=== PATIENT | female | born 1955 | race Caucasian/White ===

== ENCOUNTER 2022-05-26 20:04 | Emergency (ER) | payer OTHER, SELFPAY ==
[2022-05-26 20:50] VITALS: BP 152/82; PULSE 91; RESP 18; TEMP 37.2; O2SAT 97; BMI 25.0
--- NOTE | 2022-05-26 21:30 | ED.GENADULT ---
HPI - General Adult General Chief complaint: Sore Throat Stated complaint: Tested positive for COVID Time Seen by Provider: 05/26/22 21:24 History of Present Illness HPI narrative: This 66-year-old female comes in reporting a cough that started yesterday and feeling worse today. She turned positive on a COVID test earlier today. She comes in requesting Paxil of id. She arrives with normal vital signs. Related Data Previous Rx's Medication Instructions Recorded nirmatrelvir 150 mg-ritonavir 100 See Rx Instructions PO .COMPLEX 05/26/22 mg tablets in a dose pack (EUA) #20 ea (Paxlovid) Allergies Allergy/AdvReac Type Severity Reaction Status Date / Time codeine Allergy Mild Anxiety Verified 05/26/22 20:54 Review of Systems Status of ROS: Reports: 10 or more systems reviewed and unremarkable except as noted in History and below Narrative: Constitutional: No fevers, no weight gain or loss. Generalized malaise. Eyes: No discharge. No vision changes. HENT: No congestion, no sore throat, no ear pain. Cardiovascular: No chest pain, no palpitations. Respiratory: No shortness of breath, no wheezes. Occasional cough. Gastrointestinal: No abdominal pain, no vomiting, no diarrhea. Genitourinary: No dysuria, no hematuria. Musculoskeletal: Normal range of motion. Skin: No rashes, no pruritis. Neurological: No dizziness, weakness, sensory change, speech change. Endo/Heme/Allergies: No bruising or bleeding. No polydipsia. Pysch: no suicidality, no anxiety, no insomnia. All other systems reviewed and are negative. Exam Narrative: Exam Narrative: Constitutional: Well-developed, well-nourished, no acute distress. HEENT: Normocephalic, atraumatic. Neck: Normal range of motion. Nontender. Supple. Heart: Regular. No murmurs. Normal rate. Intact distal pulses. Lungs: Clear to auscultation. No chest discomfort. No wheezes, rhonchi, or rales. Abdomen: Normal bowel sounds. Nontender. No rebound tenderness. Genitalia: Deferred. Back: No midline tenderness. Normal range of motion. Extremities: Normal range of motion. No injury. Skin: Intact. No rash. Warm. No erythema or pallor. Neurologic: No altered sensation. No weakness. Alert and oriented. Psychiatric: No suicidality. No anxiety or depression. No insomnia. Nursing notes and vitals signs are reviewed. Const: Vital Signs, click to edit/add: Vital Signs - 24 hr 05/26/22 20:50 Temperature 98.9 F Pulse Rate [Right Pulse Oximeter] 91 Respiratory Rate 18 Blood Pressure [Ri ght Upper Arm] 152/82 H Pulse Oximetry 97 Oxygen Delivery Me thod Room Air Course Vital Signs Vital signs: Initial Vital Signs Temperature 98.9 F 05/26/22 20:50 Temperature Source Temporal Artery Scan 05/26/22 20:50 Pulse Rate 91 05/26/22 20:50 Respiratory Rate 18 05/26/22 20:50 Blood Pressure 152/82 H 05/26/22 20:50 Blood Pressure Mean 105 05/26/22 20:50 Blood Pressure Position Sitting 05/26/22 20:50 Pulse Oximetry 97 05/26/22 20:50 Oxygen Delivery Method 05/26/22 20:50 Vital Signs Temperature 98.9 F 05/26/22 20:50 Pulse Rate 91 05/26/22 20:50 Respiratory Rate 18 05/26/22 20:50 Blood Pressure 152/82 H 05/26/22 20:50 Pulse Oximetry 97 05/26/22 20:50 Oxygen Delivery Method 05/26/22 20:50 Temperature 98.9 F 05/26/22 20:50 Pulse Rate 91 05/26/22 20:50 Respiratory Rate 18 05/26/22 20:50 Blood Pressure 152/82 H 05/26/22 20:50 Pulse Oximetry 97 05/26/22 20:50 Oxygen Delivery Method 05/26/22 20:50 Medical Decision Making [facility] Narrative Medical decision making narrative: This patient is positive for COVID and symptoms started yesterday. Her creatinine level is is normal range and she is a candidate for Paxlovid. She is not on any other medications. She received an oral dose of dexamethasone 10 mg. A prescription for Paxlovid is provided. Lab Data Labs: Lab Results 05/26/22 Range/Units 21:05 Creatinine 0.6 (0.5-1.5) mg/dL Estimated Creat Clear 51.14 Estimated GFR 100 ml/min Discharge Plan Discharge Clinical Impression: COVID-19 Patient Disposition: Home, Self-Care Condition: Stable Additional Instructions: Take medication as prescribed. Use npye-hhn-[id number] medicines as needed and directed. Follow up with MD or return if worsening. Prescriptions: New Paxlovid (EUA) 150-100 mg tablets,dose pack See Rx Instructions .ROUTE .COMPLEX Qty: 20 0RF Rx Instructions: orally per package directions Stand Alone Forms: [employer] Info Instructions
[2022-05-26] MEDS: dexAMETHasone 10 MG/ML inj PO (21:39)
--- OUTSIDE RECORDS SUMMARY | 2022-05-26 21:42 | XMS_ITS | Clinical Summary ---
:1955 Author Organization [facility] [place] [address] Care Team Providers Name Role Phone Adela Ewing MD Primary Care Provider [phone] Allergies Active Allergy Reactions Severity Noted Date Comments Codeine 08/25/2007 Medications Medication Sig Dispensed Refills Start Date End Date Status ferrous sulfate 325 mg Take 1 tablet by 0 11/25/2016 Active delayed release tablet mouth once daily. ascorbic acid, vitamin Take 1 tablet by 0 11/27/2017 Active C, (VITAMIN C) 500 mg mouth once daily. tablet cholecalciferol Take 1 capsule by 0 05/26/2019 Active (VITAMIN D) 1,000 unit mouth once daily. capsule triamcinolone Apply topically 45 g 1 05/15/2021 Active (ARISTOCORT; KENALOG) to affected 0.1 % creamIndications: area(s) 3 times Chronic eczema daily. zinc 50 mg tablet Take 1 Tablet (50 0 11/08/2021 Active mg) by mouth once daily. Sxeoe-2-TPV-EPA-Fish Take 1 Capsule 0 11/08/2021 Active Oil 1,000 mg (120 (1,000 mg) by mg-180 mg) cap mouth. Active Problems Problem Noted Date History of carpal tunnel repair 11/01/2012 Screen for colon cancer 11/15/2010 Encounters Date Type Specialty Care Team Description 03/18/2022 Ancillary Procedure 03/18/2022 Travel from Last 3 Months Immunizations Name Administration Dates Next Due COVID-19 vaccine (Alexis Bittar 30mcg/0.3mL) PF, , 09/04/2020 MDV Td (Age >=7 Years) 09/01/2003 Tdap 05/15/2021, 10/04/2010 Zoster (Shingrix-RZV, recombinant) 02/09/2018, 11/27/2017 Family History Medical History Relation Name Comments Other Father bone ca Heart Disease Maternal Grandfather Heart Disease Maternal Uncle Diabetes Mother Heart Disease Mother Hyperlipidemia Mother Other Mother dialysis Heart Disease Other Cancer-breast No Family History Cancer-ovarian No Family History Relation Name Status Comments Father Maternal Grandfather Maternal Uncle Mother Other Social History Tobacco Use Types Packs/Day Years Used Date Never Smoker Smokeless Tobacco: Never Used Tobacco Cessation: Counseling Given: Yes Alcohol Use Standard Drinks/Week Comments Yes 6 (1 standard drink = 0.6 oz pure alcoho l) moderate Alcohol Habits Answer Date Recorded How often do you have a drink containing 4 or more times a w sokaogon 11/30/2018 alcohol? How many drinks containing alcohol do you have 1 or 2 11/30/2018 on a typical day when you are drinking? How often do you have six or more drinks on one Never 11/30/2018 occasion? 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 Respiratory Rate 18 01/30/2016 9:32 AM CDT Oxygen Saturation 97% 11/08/2021 8:57 AM CDT Inhaled Oxygen Concentration - - Weight 68.4 kg (150 lb 12.8 oz) 11/08/2021 8:57 AM CDT Height 162.6 cm (5' 4) 11/08/2021 8:57 AM CDT Body Mass Index 25.88 11/08/2021 8:57 AM CDT Plan of Treatment Health Maintenance Due Date Last Done Comments COVID-19 vaccine series (3 - 11/20/2020 09/25/2020, 021 Booster for Pfizer series) Pap test for age 21-65 11/30/2021 11/30/2018, 11/12/2015, 11/01/2012, Additional history exists Influenza for age 50-64 04/10/2022 Depression screening for age 12+ 05/15/2022 05/15/2021, , 11/30/2018, Additional history exists BMI (ht and wt on same day) for 11/08/2022 11/08/2021, 1001/2021, age 18+ 04/03/2021, Additional history exists Mammogram for age 45-75 03/18/2023 03/18/2022, 02/21/2021, 02/21/2020, Additional history exists Lipids for age 45-75 11/08/2026 11/08/2021, 05/15/2021, 03/29/2020, Additional history exists Tetanus booster 05/15/2031 05/15/2021, 10/04/2010, 09/01/2003 Colonoscopy through age 75 07/12/2031 07/12/2021, , 07/12/2021, Additional history exists Zoster (shingles) series for age Completed 02/09/2018, 50+ Hepatitis C screening for age Completed 11/30/2018 18-79 Tdap Completed 05/15/2021, 10/04/2010 Procedures Procedure Name Priority Date/Time Associated Diagnosis Comme nts XR MAMMO BILAT Routine 03/18/2022 8:28 AM Visit for screening Results for this SCREENING CDT mammogram procedure are i n the results section. from Last 3 Months Results XR MAMMO BILAT SCREENING (03/18/2022 8:28 AM CDT) Anatomical Region Laterality Modality BREASTS, Breast Left, Breast Right Bilateral Mammo graphy Specimen (Source) Anatomical Location Collection Method / Collectio n Time Received Time / Laterality Volume Impressions 03/18/2022 3:24 PM CDT ??There is no radiographic evidence for malignancy. ??Recommend annual mammograms. MAMMOGRAM ASSESSMENT: ??ACR 1 Negative PATIENTS: You will also receive a letter with your examination results in an easy to read format. ??If you have qu estions about your results, please contact your referring provider. Narrative 03/18/2022 3:24 PM CDT For Patients: As a result of the Century Cures Act, medical imaging exams and procedure reports are released immediately into your electronic medical record. You may view this report before your referring provider. If you have questions, please contact [facility] care provider. XR MAMMO BILAT SCREENING [[id number]] CLINICAL HISTORY: ??This is an asymptoma tic 66 y.o. patient. INDICATION FOR EXAM: Mammogram Screening . TECHNIQUE: CC & MLO views were obtained. ??This study was evaluated with the assistance of Computer-Aided Detecti on. COMPARISON FILM: Yes 02/21/21 [facility] 02/20/20 [facility] FINDINGS: ??The breasts have scattered a reas of fibroglandular density. There are no dominant masses, suspicious micro calcifications or areas of architectural distortion. Adela Ewing MD MAMMO from Last 3 Months Insurance Payer Benefit Plan / Subscriber ID Effective Dates Phone Addre ss Type Group MEDICA MEDICA CHOICE [id number] 2019-Present [address] [address] [place] [address] Guarantor Name Account Type Relation to Date of Phone Billing Patient Address [place] Personal/Family Self 1955 [address] [place] (Home) [place] [phone] (Work) Care Teams Pre Assembly Wirer Relationship Specialty Start Date End Date Adela Ewing MD PCP - General Family Practice 09/06/21 [address] [place] [id number]
[2022-05-26 21:59] LABS: Creatinine* 0.6 mg/dL (0.5-1.5); Est. Creatinine Clearance* 51.14; Estimated Glomerular Filt Rate 100 ml/min
[2022-05-26 22:29] VITALS: BP 145/78; PULSE 89; RESP 18; TEMP 37.2; O2SAT 97
[2022-05-26 22:35] VITALS: BP 145/78; PULSE 89; RESP 18; TEMP 37.2
[2022-05-27 02:13] LABS: Chloride* 98 mmol/L (96-114); Potassium* 3.9 mmol/L (3.6-5.1); Sodium* 135 mmol/L (135-149)
[2022-05-27 02:15] LABS: Creatinine* 0.6 mg/dL (0.5-1.5); Est. Creatinine Clearance* 51.14; Estimated Glomerular Filt Rate 100 ml/min
[2022-05-27 02:16] LABS: Blood Urea Nitrogen* 16 mg/dL (7-30); Calcium* 9.4 mg/dL (8.4-10.6); Carbon Dioxide* 26 mmol/L (20-32); Glucose* 132 mg/dL (60-115)
== END 2022-05-26 22:35 | disposition home or self-care (01) ==
LOC: ED 21:41
PROVIDERS: Emergency Provider Emergency Medicine Emergency Medical Services; PCP Family Medicine
DX: U07.1 COVID-19 (principal); Z88.5 Allergy status to narcotic agent
CPT/HCPCS: 36415; 80048; 82565; 96372; 99283; 99284; J1100

== ENCOUNTER 2023-01-21 06:24 | Day surgery (SDC) | payer OTHER, SELFPAY ==
[2023-01-21 06:40] VITALS: BP 106/74; PULSE 73; RESP 16; TEMP 37; O2SAT 97; BMI 25.7
[2023-01-21] MEDS: BUPIVACAINE 0.5% 30 ML INJECTION (07:05)
[2023-01-21] MEDS: ETHYL CHLORIDE 1 APPLICATION 1 APPLIC TOPICAL (07:05)
[2023-01-21 07:29] VITALS: BP 113/70; PULSE 76; RESP 16; O2SAT 98
[2023-01-21 07:35] VITALS: BP 124/75; PULSE 73; RESP 16; O2SAT 98
[2023-01-21 07:40] VITALS: BP 126/83; PULSE 78; RESP 14; O2SAT 99
--- NOTE | 2023-01-21 07:40 | P.ORPRC_ITS ---
Procedure Note Date of procedure: 01/21/23 Procedure: PREOPERATIVE DIAGNOSIS: 1. Left carpal tunnel syndrome POSTOPERATIVE DIAGNOSIS: 1. Left carpal tunnel syndrome PROCEDURE: 1. Left open carpal tunnel release SURGEON: Mustapha Hitchcock MD. SMALL BOAT ENGINEER: Jeb Agee PA-C ANESTHESIA: Local anesthetic (50:50 mixture of 1% lidocaine with epi and 0.5% marcaine plain) - 10ml total IMPLANTS: None EBL: 2 mL TOURNIQUET: None COMPLICATIONS: None evident INDICATIONS: The patient is a pleasant 67-year-old female who has experienced left hand numbess/tingling affecting the radial 3.5 digits for multiple months. It has progressively gotten worse. Nonoperative management has been tried and failed, and therefore surgery was recommended. DESCRIPTION OF PROCEDURE: Following a thorough discussion of risks, benefits, and alternatives consent was obtained and the operative extremity was marked. The patient was brought to the operating room and placed supine on the operating table. Local anesthesia induction was undertaken in preop holding. No antibiotics were administered as this was planned to be a local case only. Proper time-out was performed identifying proper patient, site, and procedure. The operative extremity was prepped and draped in the appropriate sterile fashion using ChloraPrep. An incision was made in line with the radial border of the ring finger beginning 1 cm distal to the distal wrist crease and progressing for another 2.5cm distal. Caution was taken to stay proximal to Duque's cardinal line. Sharp incision through the skin, subcutaneous tissue, and palmar fascia was performed. The thenar musculature was bluntly elevated off the transverse carpal ligament. The ligament was directly visualized, and divided sharply with a 15 blade. This was released from its most proximal to the most distal extent. Metzenbaum scissor was also utilized to release the fascia extension proximally. We confirmed complete release of the transverse carpal ligament. Closure was performed with 4-O nylon in interrupted fashion. Soft dressings were applied, and the patient was transferred to the recovery room in stable condition. PLAN: 1. Encourage elevation of the operative extremity. 2. Range of motion of the fingers and hand/wrist as tolerated. 3. Ibuprofen/acetaminophen and/or oxycodone as needed for pain control. 4. Follow up with PA visit or nurse visit in 12-16 days for wound check and suture removal.
[2023-01-21 07:45] VITALS: BP 119/77; PULSE 74; RESP 16; O2SAT 98
[2023-01-21 07:52] VITALS: BP 108/72; PULSE 74; RESP 16; TEMP 37; O2SAT 97
== END 2023-01-21 08:13 | disposition home or self-care (01) ==
PROVIDERS: PCP Family Medicine; Visit Provider Orthopaedic Surgery Sports Medicine
PROC: (CPT 64721; principal; 2023-01-21 07:30)
DX: G56.02 Carpal tunnel syndrome, left upper limb (principal)
CPT/HCPCS: 64721; J3490

== ENCOUNTER 2024-07-17 20:50 | Emergency (ER) | payer MEDICARE, BC, SELFPAY ==
[2024-07-17 20:54] VITALS: BP 133/90; PULSE 80; RESP 20; TEMP 36.4; O2SAT 97; BMI 25.0
--- NOTE | 2024-07-17 21:16 | ED_ITS ---
HPI - Skin/Abscess/Foreign Bdy General Chief complaint: Skin/Abscess/Foreign Body Stated complaint: Sowing Needle stuck in left hand Index finger Time Seen by Provider: 07/17/24 20:53 History of Present Illness HPI narrative: This 68-year-old female comes in with a sewing machine needle stuck into the distal portion of her left index finger. She was using a sewing machine and accidentally got her finger in the pathway of the needle. The needle broke off but a portion of it is imbedded in her finger with some of the sewing thread attached. She states that her tetanus status is up-to-date. Related Data Home Medications ?Medication ?Instructions ?Recorded ?Confirmed ascorbate calcium (vitamin C) 500 1 g PO Q6H 12/09/22 07/17/24 mg tablet ascorbic acid (vitamin C) 500 mg mg PO 12/09/22 03/19/23 capsule omega 0-esf-cnf-fish oil 300 1 cap PO QDAY 12/09/22 07/17/24 mg-1,000 mg capsule (Fish Oil) rosuvastatin 5 mg tablet (Crestor) 5 mg PO QDAY 12/09/22 07/17/24 Previous Rx's ?Medication ?Instructions ?Recorded nirmatrelvir 150 mg-ritonavir 100 See Rx Instructions PO .COMPLEX 05/26/ mg tablets in a dose pack #20 ea (Paxlovid) Allergies Allergy/AdvReac Type Severity Reaction Status Date / Time codeine Allergy Mild Anxiety Verified 07/17/24 20:57 Review of Systems Status of ROS: Reports: 10 or more systems reviewed and unremarkable except as noted in History and below Narrative: Constitutional: No fevers, no weight gain or loss. Eyes: No discharge. No vision changes. HENT: No congestion, no sore throat, no ear pain. Cardiovascular: No chest pain, no palpitations. Respiratory: No shortness of breath, no wheezes, no cough. Gastrointestinal: No abdominal pain, no vomiting, no diarrhea. Genitourinary: No dysuria, no hematuria. Musculoskeletal: Normal range of motion. Skin: No rashes, no pruritis. Neurological: No dizziness, weakness, sensory change, speech change. Endo/Heme/Allergies: No bruising or bleeding. No polydipsia. Pysch: no suicidality, no anxiety, no insomnia. All other systems reviewed and are negative. [facility] Medical History (Updated 07/17/24 @ 21:19 by Simone Whitaker MD) Sinusitis ?J32.9 - Chronic sinusitis, unspecified (ICD-10) Anemia, unspecified ?D64.9 - Anemia, unspecified (ICD-10) Surgical History (Updated 03/19/23 @ 14:16 by Jeb Agee PA-C) History of carpal tunnel surgery of left wrist (01/21/23) ?Z98.890 - Other specified postprocedural states (ICD-10) H/O breast biopsy ?Z98.890 - Other specified postprocedural states (ICD-10) H/O section ?Z98.891 - History of uterine scar from previous surgery (ICD-10) History of arthroscopy of knee (07/26/09) ?Z98.890 - Other specified postprocedural states (ICD-10) History of carpal tunnel release (~1996) ?Z98.890 - Other specified postprocedural states (ICD-10) Social History Smoking Status: Never smoker Do you use any of these nicotine containing products: None Second hand tobacco smoke exposure: No How often do you have a drink containing alcohol: never How often do you have six or more drinks on one occasion: Never AUDIT-C Alcohol total score: 0 Non-prescribed substance use: denies use Exam Narrative: Exam Narrative: Constitutional: Well-developed, well-nourished, no acute distress. HEENT: Normocephalic, atraumatic. Neck: Normal range of motion. Nontender. Supple. Heart: Intact distal pulses. Lungs: No chest discomfort. No wheezes, rhonchi, or rales. Abdomen: Nontender. Back: Normal range of motion. Extremities: Normal range of motion. Puncture wound of the needle from a sewing machine in the distal portion of her left index finger. Skin: Intact. No rash. Warm. No erythema or pallor. Neurologic: No altered sensation. No weakness. Alert and oriented. Psychiatric: No suicidality. No anxiety or depression. No insomnia. Nursing notes and vitals signs are reviewed. Const: Vital Signs, click to edit/add: Vital Signs - 24 hr 07/17/24 20:54 Temperature 97.6 F Pulse Rate [Pulse Oximeter] 80 Respiratory Rate 20 Blood Pressure [Ri ght Upper Arm] 133/90 H Pulse Oximetry 97 Oxygen Delivery Me thod Room Air Course Vital Signs Vital signs: Initial Vital Signs Temperature 97.6 F 07/17/24 20:54 Temperature Source Temporal Artery Scan 07/17/24 20:54 Pulse Rate 80 07/17/24 20:54 Pulse Rhythm Regular 07/17/24 20:54 Pulse Strength 3+ Normal 07/17/24 20:54 Respiratory Rate 20 07/17/24 20:54 Blood Pressure 133/90 H 07/17/24 20:54 Blood Pressure Mean 104 07/17/24 20:54 Blood Pressure Position Sitting 07/17/24 20:54 Pulse Oximetry 97 07/17/24 20:54 Oxygen Delivery Method Room Air 07/17/24 20:54 Vital Signs Temperature 97.6 F 07/17/24 20:54 Pulse Rate 80 07/17/24 20:54 Respiratory Rate 20 07/17/24 20:54 Blood Pressure 133/90 H 07/17/24 20:54 Pulse Oximetry 97 07/17/24 20:54 Oxygen Delivery Method Room Air 07/17/24 20:54 Temperature 97.6 F 07/17/24 20:54 Pulse Rate 80 07/17/24 20:54 Respiratory Rate 20 07/17/24 20:54 Blood Pressure 133/90 H 07/17/24 20:54 Pulse Oximetry 97 07/17/24 20:54 Oxygen Delivery Method Room Air 07/17/24 20:54 MDM - Skin/Abscess/Foreign Bdy MDM Narrative Medical decision making narrative: This patient has a foreign object in her finger. I did inject a small amount of 1% lidocaine for anesthesia and then used a mosquito clamp to grab onto the needle and pull it through along with the thread. There is no residual wound that needs repair. The patient applied some direct pressure to stop bleeding and then a Band-Aid was applied. Discharge Plan Discharge Clinical Impression: Foreign body (FB) in soft tissue Patient Disposition: Home, Self-Care Condition: Improved Additional Instructions: Use goum-feb-wikcsus medicines as needed and directed. Follow up with MD or return if worsening. Prescriptions: No Action rosuvastatin [Crestor] 5 mg tablet 5 mg PO QDAY ascorbic acid (vitamin C) 500 mg capsule PO omega 7-gdj-jmi-fish oil [Fish Oil] 300-1,000 mg capsule 1 cap PO QDAY ascorbate calcium (vitamin C) 500 mg tablet 1 g PO Q6H Paxlovid 150-100 mg tablets,dose pack See Rx Instructions .ROUTE .COMPLEX Qty: 20 0RF Rx Instructions: orally per package directions Follow Up/Referrals: Adela Ewing MD [Primary Care Provider] - Stand Alone Forms: [employer] Info Instructions
--- OUTSIDE RECORDS SUMMARY | 2024-07-17 21:28 | XMS_ITS | Clinical Summary ---
Author Organization [facility] Address [place], [place] [address] Care Team Providers Care Night Manager Name Role Phone KaylinAdela valentino MD Primary Care Provider Allergies Active Allergy Reactions Criticality Noted Date Comments Codeine 08/25/2007 Medications Xoelg-3-LIP-EPA-Fis h Oil 1,000 mg (120 mg-180 mg) cap Take 1 Capsule (1,000 mg) by mouth. 0 2 Active calcium carbonate-vitamin D3, 500 mg-400 units, (Calcium 500 + D) tablet Take 1 Tablet by mouth three times daily with meals. Active rosuvastatin (CRESTOR) 20 mg tabletIndications:H yperlipidemia, unspecified hyperlipidemia type Take 1 Tablet (20 mg) by mouth at bedtime. 90 Tablet 3 4 Active Active Problems Problem Noted Date Diagnosed Date Pap smear for cervical cancer screening 10/10/19 23 Overview (10/09/2022): 09/19/2022: NIL/HPV neg. Plan: routine screening History of carpal tunnel repair 11/01/2012 Screen for colon cancer 11/15/2010 Encounters Date Type Department Care Team Description 07/04/2024 2:40 PM LAUNDRY TECHNICIAN Office Visit [facility] [address] [address] Jessica Laboy MD Derm Problem 07/04/2024 Travel 05/09/2024 8:50 AM CDT Office Visit [facility] [address] [place], [place] [address] Lola Madsen PA Derm Problem (Spot by left eye that just started growing this summer-seems to keep growing so wants checked) 05/09/2024 Travel from Last 3 Months Immunizations Name Administration Dates Next Due COVID-19 vaccine ([employer] 30mcg/0.3mL) P F, MDV 09/25/2020,09/04/2020 Td (Age >=7 Years) 09/01/2003 Tdap 05/15/2021,10/04/2010 Zoster (Shingrix-RZV, recombinant) 02/09/2018, Family History Medical History Relation Name Comments Other Father bone ca Heart Disease Maternal Grandfather Heart Disease Maternal Uncle Diabetes Mother Heart Disease Mother Hyperlipidemia Mother Other Mother dialysis Heart Disease Other Cancer-breast No Family History Cancer-ovarian No Family History Relation Name Status Comments Father Maternal Grandfather Maternal Uncle Mother Other Social History Tobacco Use Types Packs/Day Years Used Date Smoking Tobacco: Never Smokeless Tobacco: Never Tobacco Cessation:Counseling Given: Yes Alcohol Use Standard Drinks/Week Comments Yes 6 (1 standard drink = 0.6 oz pur e alcohol) moderate PHQ-2 Answer Date Recorded PHQ-2 TOTAL SCORE 0 09/28/2023 Social Connections Answer Date Recorded Do you often feel lonely or isolated from those around you? 0 09/28/2023 Financial Resource Strain Answer Date R ecorded Difficulty of Paying Living Expenses 3 09/28/2023 Difficulty of Paying Living Expenses Not on file 09/28/2023 Food Insecurity Answer Date Recorded Do you worry your food will run out before you are able to buy more? 1 09/28/2023 Transportation Needs Answer Date Record ed Does lack of transportation keep you from medica l appointments? 1 09/28/2023 Does lack of transportation keep you from work, meetings or getting things that you need? 1 09/28/2023 Housing Stability Answer Date Recorded What is your housing situation today? 1 09/28/2023 Comments No Sex and Gender Information Value Date Recorded Sex Assigned at Not on file Legal Sex Female 5:17 AM LAUNDRY TECHNICIAN Gender Identity Not on file Sexual Orientation Not on file Obstetrics History Para Term AB IAB SAB Ectopic Multiple Livin g Live Births 2 2 2 Date Outcome GA Total Labor Labor/2nd/3rd Weight Sex Type Anes PTL [place] A1 A5 Name Clin Term Term Last Filed Vital Signs Vital Sign Reading Time Taken Comments Blood Pressure 104/67 05/09/2024 8:54 AM CDT Pulse 79 05/09/2024 8:54 AM CDT Temperature 36.8 C (98.2 F) 12/01/2023 3:01 PM CDT Respiratory Rate 18 01/30/2016 9:32 AM CDT Oxygen Saturation 97% 05/09/2024 8:54 AM CDT Inhaled Oxygen Concentration - - Weight 73 kg (161 lb) 05/09/2024 8:54 AM CDT Height 163.8 cm (5' 4.5) 09/28/2023 8:09 AM LAUNDRY TECHNICIAN Body Mass Index 27.21 09/28/2023 8:09 AM LAUNDRY TECHNICIAN Plan of Treatment Health Maintenance Due Date Last Done Comments Pneumococcal series for age 65+ (1 of 1 - PCV) 2022 COVID-19 vaccine series ( season) 2024 09/25/2020, 09/04/2020 Influenza for age 65+ 04/10/2024 BMI (ht and wt on same day) for age 18+ 09/28/2024 09/28/2023, 11/03/2022, 09/19/2022, Additional history exists Depression screening for age 12+ 09/28/2024 09/28/2023, 09/19/2022, 05/15/2021, Additional history exists Medicare Wellness for age 65+ 09/28/2024 09/28/2023 Mammogram for age 45-75 04/05/2025 04/05/20 24, 03/31/2023, 03/18/2022, Additional history exists Lipids for age 45-75 09/28/2028 09/28/2023, 09/19/2022, 11/08/2021, Additional history exists Tetanus booster 05/15/2031 05/15/2021, /12/2010, 09/01/2003 Colonoscopy through age 75 07/12/203107/12, 07/12/2021, 07/12/2021, Additional history exists Zoster (shingles) series for age 50+ Completed 02/09/2018, 11/27/2017 Hepatitis C screening for ag e 18-79 Completed 11/30/2018 Tdap Completed 05/15/2021, 10/04/2010 DEXA/DXA scan for age 65+ Completed 09/29/2022 Procedures Procedure Name Priority Date/Time Associated Diagnosis Comments XR MAMMO VLADIMIR BILAT SCREEN Routine 04/05/2024 7:18 AM CDT 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 LIPID PANEL W REFLEX MEASURED LDL Routine 09/28/2023 8:51 AM LAUNDRY TECHNICIAN Hyperlipidemia, unspecified hyperlipidemia type XR DXA BONE DENSITY 2 SITES AXIAL Routine 09/29/2022 8:51 AM LAUNDRY TECHNICIAN Postmenopausal COLONOSCOPY SCREENING Routine 07/12/2021 10:23 AM LAUNDRY TECHNICIAN Screening for colon cancer ANTI HCV Routine 11/30/2018 9:15 AM CDT Need for hepatitis C screening test from Last 3 Months or Most Recently Relevant to Health Maintenance Results * XR MAMMO VLADIMIR BILAT SCREEN (04/05/2024 7:18 AM CDT) Anatomical Region Laterality Modality BREASTS, Breast Left, Breast Right Bilateral Mammography Impressions 04/06/2024 2:40 PM CDT There is no radiographic evidence for malignancy. Recommend annual mammograms. MAMMOGRAM ASSESSMENT: ACR 1 Negative PATIENTS: You will also receive a letter with your examination results in an easy to read format. If you have questions about your results, please contact your referring provider. Narrative 04/06/2024 2:40 PM CDT For Patients: As a result of the 21st Century Cures Act, medical imaging exams and procedure reports are released immediately into your electronic medical record. You may view this report before your referring provider. If you have questions, please contact your health care provider. XR MAMMO VLADIMIR BILAT SCREEN [[id number]] CLINICAL HISTORY: This is an asymptomatic 68 y.o. patient. INDICATION FOR EXAM: Mammogram Screening. TECHNIQUE: CC & MLO views were obtained. This study was evaluated with the assistance of Computer-Aided Detection. Breast Tomosynthesis was used in interpretation. COMPARISON FILM: Yes 03/31/23 [facility] 03/18/22 [facility] FINDINGS: There are scattered areas of fibroglandular density. There are no dominant masses, suspicious micro calcifications or areas of architectural distortion. Adela Ewing MD MAMMO Final R esult * LIPID PANEL W REFLEX MEASURED LDL (09/28/2023 8:51 AM LAUNDRY TECHNICIAN) CHOLESTEROL,TOTAL 165 100 - 199 mg/dL 09/28/2023 6:53 PM LAUNDRY TECHNICIAN [facility] Comment: Cholesterol, Total Reference Ranges Desirable <200 mg/dL Borderline 200-239 mg/dL High >=240 mg/dL TRIGLYCERIDES 99 <150 mg/dL 09/28/2023 6:53 PM LAUNDRY TECHNICIAN [facility] HDL CHOLESTEROL 57 >40 mg/dL 6:53 PM LAUNDRY TECHNICIAN [facility] NON-HDL CHOLESTEROL 108 <145 mg/dl 09/28/2023 6:53 PM LAUNDRY TECHNICIAN [facility] CHOL/HDL RATIO 2.89 <4.50 09/28/2023 6:53 PM LAUNDRY TECHNICIAN [facility] LDL CHOLESTEROL 88 <=130 mg/dL 09/28/2023 6:53 PM [facility] VLDL CHOLESTEROL 20 <=30 mg/dL 09/28/2023 6:53 PM LAUNDRY TECHNICIAN [facility] PROVIDER ORDERED STATUS RANDOM 09/28/2023 6:53 PM [facility] Blood BLOOD SPECIMEN / Unknown Venipuncture / Unknown 09/28/2023 8:51 AM LAUNDRY TECHNICIAN 09/28/2023 8:51 AM LAUNDRY TECHNICIAN Adela Ewing MD CHEMISTRY Final R esult [facility] [address] [place] [address], [place] * (ABNORMAL) XR DXA BONE DENSITY 2 SITES AXIAL [15677.1] (09/29/2022 8:51 AM LAUNDRY TECHNICIAN) Anatomical Region Laterality Modality Spine, HIPS, HIPL, HIPR Other Impressions 10/07/2022 3:37 PM LAUNDRY TECHNICIAN Osteopenia. RECOMMENDATIONS: The National Osteoporosis Foundation recommends pharmacologic treatment for patients with T-scores of -2.5 or less, patients with prior history of fragility fractures, or patients with 10-year probability of greater than 3% at hips or greater than 20% of suffering major osteoporotic fractures. Recommend continued optimization of calcium and vitamin D intake through dietary means and/or supplementation and regular exercise. Repeat scan recommended in 3-5 years. Thelma Garcia PA-C [facility] 10/07/2022 Narrative 10/07/2022 3:37 PM LAUNDRY TECHNICIAN For Patients: Results are automatically released to your [facility] account once available, in compliance with federal regulations. This means that you may see your results before your provider has had a chance to review them. Please allow 2-3 business days for your provider to comment on the results. XR DXA Bone Mineral Density (BMD) EXAM LOCATION: [address] [address] PATIENT NAME: Sherin Mendoza DATE OF : 1955 EXAM DATE: 09/29/2022 REQUESTING PROVIDER: Adela Ewing MD GENDER AT : female HEIGHT: 5' 4.5 (09/19/2022) WEIGHT: 156 lb (09/19/2022) MENOPAUSAL STATUS: Postmenopausal RACE/ETHNICITY: White RISK FACTORS: White Race CURRENT MEDICATION FOR BONE LOSS: NONE INDICATION: Post-Menopause COMPARISON DATE(S): None DXA scans are compared to prior studies for a patient only when the two (or more) studies were performed on the same scanner. It is not possible to compare data generated on one scanner to data from another because there are not standards in DXA equipment. This applies even if the two scanners are made by the same centrifugal extractor operator. PROCEDURE: Dual-energy x-ray absorptiometry performed with routine technique. Reporting is completed in the form of a T-score. The T-score represents the standard deviation from peak bone mass based on young healthy adult. A Z-score is used for diagnosis in premenopausal women, and for men under the age of 50. FINDINGS: RESULT LUMBAR SPINE L1 - L4 BMD: 1.204 g/cm2 T-Score: + 0.1 Z-Score: + 1.5 Change from prior: None RESULTS FEMUR Left femoral neck BMD: 0.833 g/cm2 T-Score: - 1.5 Z-Score: - 0.1 Change from prior: None Right femoral neck BMD: 0.827 g/cm2 T-Score: - 1.5 Z-Score: - 0.2 Change from prior: None Left hip BMD: 0.892 g/cm2 T-Score: - 0.9 Z-Score: + 0.1 Change from prior: None Right hip BMD: 0.920 g/cm2 T-Score: - 0.7 Z-Score: + 0.4 Change from prior: None WHO criteria: Normal: T-score at or above -1 SD Osteopenia: T-score between -1.1 and -2.4 SD Osteoporosis: T-score at or below -2.5 SD FRAX RISK CALCULATION (USED FOR OSTEOPENIA ONLY): 10-year probability of major osteoporotic fracture: 9.0%. 10-year probability of hip fracture: 1.0%. us Adela Ewing MD DEXA Final R esult * COLONOSCOPY (07/12/2021 11:17 AM LAUNDRY TECHNICIAN) 07/12/2021 11:1 7 AM LAUNDRY TECHNICIAN Narrative Transcriptions Angus Briscoe MD - 07/12/2021 12:01 PM CST Patient Name: Sherin Mendoza Procedure Date: 07/12/2021 Gender: Female Date of : 1955 Admit Type: Outpatient Procedure: Colonoscopy Proceduralist: Angus Briscoe MD , Nusrat Stearns RN(Nurse) Referring MD: Adela Ewing Indications/Pre-Op Diagnosis: Screening for colorectal malignant neoplasm, Last colonoscopy: November 2010 Medications: Fentanyl 100 micrograms IV, Midazolam 2 mgIV, The level of sedation administered wasmoderate Procedure Description: The patient had risks, benefits and alternatives explained to andgave informed consent. The patient had a stable cardiopulmonary status and judged an adequate candidate for conscious sedation. The colonoscope was passed through the anus and advanced to thececum, identified by appendiceal orifice and ileocecal valve. Thecolonoscopy was performed without difficulty. The patient tolerated the procedure well. The quality of the bowel preparation was good. The ileocecal valve, appendiceal orifice, and rectum were photographed. Complications: No immediate complications. Estimated Blood Loss & Specimen: Estimated blood loss: none. Specimen collected - None Findings: The perianal and digital rectal examinations were normal. The colon (entire examined portion) was mildly redundant. The exam was otherwise without abnormality on direct and retroflexion views. Impressions/Post-Op Diagnosis: - Redundant colon. - The examination was otherwise normal on direct and retroflexionviews. - No specimens collected. Recommendation: - Patient has a contact number available for emergencies. The signsand symptoms of potential delayed complications were discussed with the patient. Return to normal activities tomorrow. Written discharge instructions were provided to the patient. - Resume previous diet. - Continue present medications. - Repeat colonoscopy in 10 years for screening purposes. - For future colonoscopy the patient will require an extended preparation, Peg 6-8L. If there are any questions, please contact the cartoon animator. Moderate Sedation: Moderate (conscious) sedation was administered by the endoscopy nurse and supervised by the endoscopist. The following parameters were monitored: oxygen saturation, heart rate, respiratory rate, blood pressure, adequacy of pulmonary ventilation and reponse to care. Please refer to the patient's medical record flowsheets and nursing notes for moderate sedation details. Total physician intraservice time was 14 minutes. Angus Briscoe MD 07/12/2021 11:58:33 AM This report has been signed electronically. Note Initiated On: 07/12/2021 11:17 AM Procedure Code(s): --- Professional --- 15600, Colonoscopy, flexible; diagnostic, including collection of specimen(s) bybrushing or washing, when performed (separateprocedure) Diagnosis Code(s): --- Professional --- Z12.11, Encounter for screening formalignant neoplasm of colon Q43.8, Other specified congenitalmalformations of intestine CPT copyright 2020 [employer]. All rights reserved. The codes documented in this report are preliminary and upon border measurer reviewmay be revised to meet current compliance requirements. Scope In: 11:42:02 AM Scope Withdrawal Time 0 hours 6 minutes 40 seconds Scope Out: 11:54:07 AM us Angus Briscoe MD PROCEDURE ORD Edited Re sult - Final * ANTI HCV [08636.2] (11/30/2018 9:15 AM CDT) HEPATITIS C ANTIBODY Non-React lyric Non-React lyric 11/30/2018 6:24 PM CDT [facility] Comment:Antibodies to HCV no t detected; does not exclude the possibility of exposure to HCV. Blood BLOOD SPECIMEN / Unknown Venipuncture / Unknown 11/30/2018 9:15 AM CDT 11/30/2018 9:15 AM CDT us Chano Nguyen MD SEND OUTS Final Resu lt [facility] [address] [place] [address], from Last 3 Months or Most Recently Relevant to Health Maintenance Insurance [employer] BLUE MR PB ONLY Care Teams Night Manager Relationship Specialty Start Date End Date Adela Ewing MD [address] [place] [address] PCP - General Family Practice 09/06/21
== END 2024-07-17 21:43 | disposition home or self-care (01) ==
LOC: ED 21:26
PROVIDERS: Emergency Provider Emergency Medicine Emergency Medical Services; PCP Family Medicine
DX: S61.241A Puncture wound with foreign body of left index finger without damage to nail, initial encounter (principal); W26.8XXA Contact with other sharp object(s), not elsewhere classified, initial encounter; W45.8XXA Other foreign body or object entering through skin, initial encounter; Y99.8 Other external cause status
CPT/HCPCS: 99282; 99283; 99284

== ENCOUNTER 2025-04-04 16:00 | Outpatient (RCR) | payer MEDICARE, BC, SELFPAY | END 2025-06-23 08:41 | disposition home or self-care (01) | PROVIDERS: PCP Family Medicine; Visit Provider Family Medicine | DX: M75.02 Adhesive capsulitis of left shoulder (principal); Z51.89 Encounter for other specified aftercare | CPT/HCPCS: 97110; 97140; 97162; 97530 ==